=== PATIENT | male | born 1965 | race Caucasian/White ===

== ENCOUNTER 2022-06-26 18:47 | Emergency (ER) | payer BC, SELFPAY ==
[2022-06-26 18:47] VITALS: BP 185/90; PULSE 71; RESP 16; TEMP 36.6; O2SAT 100; BMI 27.1
--- NOTE | 2022-06-26 18:59 | EX.ED.VIS.EY ---
HPI History of Present Illness Chief Complaint: Eye Problem Informant: patient Onset/Context/Timing Location: Right Eye Onset: Yesterday Context: Sudden Onset Timing: Continuous Worsened by: Nothing Relieved by: Nothing Associated Symptoms Associated Symptoms - Eyes: Crusting, Drainage, Eyelid swelling, Pain, Photophobia and Redness; Negative for Burning, Foreign body sensation, Itching or Matting History of injury: No Visual correction: Glasses Narrative Narrative: Patient presents with right eye pain that began yesterday. Patient states it began rather suddenly. Patient states he has a history of prior corneal abrasions. Patient states this feels similar to that. Patient admits to some redness and swelling of his eyelid. Patient admits to some crusting and watery drainage from his right eye. Patient admits to some photophobia. Patient denies any specific trauma or injury. Patient denies any visual changes. Patient denies wearing contact lenses. [facility] Medical History (Updated 06/26/22 @ 20:[address] Anand Jenkins DO) Hypertension Home Medications lisinopril 10 mg tablet 10 mg PO DAILY 06/26/22 [History Last Taken Unknown] trazodone 50 mg tablet 50 mg PO QHS 06/26/22 [History Last Taken Unknown] Allergy/AdvReac Type Severity Reaction Status Date / Time No Known Allergies Allergy Verified 06/26/22 18:49 Surgical History no surgical history no surgical history Social History Smoking Status: Current every day smoker tobacco type: cigarettes ROS ROS ED Constitutional Constitutional ED: Denies chills or fever(s) Eyes Eyes: Denies blurry vision or change in vision ENT ENT ED: Reports rhinorrhea; Denies sore throat Cardiovascular Cardiovascular: Denies chest pain or palpitations Respiratory/Chest Respiratory/Chest: Denies cough or dyspnea Gastrointestinal Gastrointestinal: Denies nausea or vomiting Genitourinary Genitourinary ED: Denies dysuria or hematuria Musculoskeletal Musculoskeletal: Denies back pain or neck pain Integumentary Denies abscess or rash Neurologic Neurologic: Denies headache(s) or weakness Allergic/Immunologic Allergic/Immunologic ED: Denies mouth swelling or urticaria EXAM Physical Exam Const Vital Signs: 06/26/22 18:47 Temperature 97.8 F Temperature Source Temporal Pulse Rate 71 Respiratory Rate 16 Blood Pressure 185/90 H Blood Pressure Mean 121 Pulse Ox 100 Oxygen Delivery Method Room Air Positive well nourished and well developed General Appearance ED: well developed and NAD HEENT Reports moist mucous membranes Eyes Eyes Narrative: Pupils are equal, round, and reactive to light bilaterally. Extraocular muscles are intact. There is some conjunctival injection on the right. There is no purulent discharge or drainage. There is no edema of the margins of the right upper eyelid. There are no pustules noted. There is mild tenderness. Anterior chamber was clear. Patient was unable to tolerate funduscopic examination. Neck supple and no JVD Extremity normal to inspection Neuro oriented x3, CN's II-XII intact bilaterally and no sensory deficits noted Sensorium / Orientation: alert Motor Exam: strength 5/5 throughout Psych mental status grossly normal Skin no rashes or lesions noted MDM MDM MDM Narrative Medical decision making narrative: Differential diagnosis includes conjunctivitis, corneal abrasion, foreign body, iritis, hordeolum, and chalazion. Will use tetracaine and fluorescein dye to assess for corneal abrasion. Will examine under slit-lamp to assess for foreign body, iritis, and corneal abrasion. Treatment and Re-Evaluation Narrative: Tetracaine and fluorescein dye was applied. Under slit-lamp examination, there is a corneal abrasion in the inferior lateral aspect of the right cornea. Anterior chamber was clear. There is no hyphema. Patient was given erythromycin ophthalmic ointment. Patient was instructed to apply this 4 times daily. Patient was instructed to follow-up with his primary care physician in 2-3 days. Patient was also given referral for ophthalmology. Patient understood and was agreeable with the plan. All questions were answered. Discharge Plan Triage Chief Complaint: Eye Problem ED Provider: Anand Jenkins Dx/Rx/DC Orders Clinical Impression: Corneal abrasion, right Instructions: ED Corneal Abrasion Prescriptions: No Action trazodone 50 mg tablet 50 mg PO QHS lisinopril 10 mg tablet 10 mg PO DAILY Label Comments: TAKE 1 TABLET BY MOUTH ONCE DAILY Primary Care Provider: Care Physician,No Primary Referrals: Krystian Cuba MD [Med Staff - Active Staff] - [facility] Days [facility] [Non-Staff] - 2 Days Disposition Disposition: Home, Self Care
[2022-06-26] MEDS: Fluorescein 1 MG STRIP 1 STRIP OPHTHALMIC (19:31)
[2022-06-26] MEDS: Tetracaine 0.5% Ophthalmic Bottle 1 DRP OPHTHALMIC (19:32)
[2022-06-26] MEDS: Erythromycin Base 1 OPTH.TUBE 1 APPLIC RIGHT EYE (20:09)
[2022-06-26 20:17] VITALS: BP 160/80; PULSE 88; RESP 16; TEMP 36.6; O2SAT 98
== END 2022-06-26 20:17 | disposition home or self-care (01) ==
PROVIDERS: Emergency Provider Emergency Medicine; Visit Provider Emergency Medicine
DX: S05.01XA Injury of conjunctiva and corneal abrasion without foreign body, right eye, initial encounter (principal); H57.13 Ocular pain, bilateral; F17.210 Nicotine dependence, cigarettes, uncomplicated; I10 Essential (primary) hypertension; H53.149 Visual discomfort, unspecified
CPT/HCPCS: 99283